=== PATIENT | male | born 1990 | race African-American/Black ===

== ENCOUNTER 2017-08-28 23:04 | Emergency (ER) | payer BC, SELFPAY ==
[2017-08-28] MEDS ORDERED: Ketorolac Tromethamine 30 MG/ML VIAL ONE (23:43)
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
== END 2017-08-29 00:35 | disposition home or self-care (01) ==
LOC: ERS 23:04
DX: S00.83XA Contusion of other part of head, initial encounter (principal); I10 Essential (primary) hypertension; J45.909 Unspecified asthma, uncomplicated; Y08.89XA Assault by other specified means, initial encounter
CPT/HCPCS: 70150; 96372; J1885

== ENCOUNTER 2019-03-02 10:32 | Emergency (ER) | payer SELFPAY ==
[2019-03-02 11:03] LABS: #Basophils 0.1 thou/uL (0.0-0.2); #Eosinphils 0.6 thou/uL (0.0-0.7); #Lymphocytes 1.2 thou/uL (1.20-3.40); #Monocytes 0.7 thou/uL (0.11-0.59); #Neutrophils 4.8 thou/uL (1.40-6.50); %Basophils 1.5 % (0.0-1.0); %Eosinophils 8.1 % (0.0-10.0); %Lymphocytes 15.9 % (21.0-51.0); %Monocytes 9.7 % (0.0-10.0); %Neutrophils 64.8 % (42.0-75.0); Hemoglobin 13.4 g/dL (14.0-18.0); Mean Corpuscular HGB CONC 32.1 g/dL (32.0-36.0); Mean Corpuscular Volume 77.9 fL (78.0-98.0); Mean Platelet Volume 6.7 fL (7.4-10.4); Platelet Count 348 thou/uL (130-400); RBC Distribution Width 12.3 % (11.5-14.5); Red Blood Cell (RBC) Count 5.34 mill/uL (4.70-6.10); White Blood Cell (WBC) Count 7.4 thou/uL (4.8-10.8)
--- NOTE | 2019-03-02 11:03 | RAD ---
F2 views of the chest: 03/02/2019 COMPARISON: 04/12/2012 HISTORY: Cough, pneumonia FINDINGS: No pneumothorax, pleural fluid, focal consolidation, or alveolar edema. Heart and mediastin al contours are unremarkable. IMPRESSION: No acute findings.
[2019-03-02 12:37] LABS: ALT (SGPT) 29 U/L (8-55); AST (SGOT) 23 U/L (5-34); Albumin 4.1 g/dL (3.5-5.0); Alkaline Phosphatase 88 U/L (40-150); Anion Gap 8 mmol/L (10-20); BUN (Urea Nitrogen) 14 mg/dL (8.9-20.6); Bilirubin, Total 1.1 mg/dL (0.2-1.2); Calc. Creatinine Clearance 0 mL/min (70-130); Calcium 9.3 mg/dL (7.8-10.44); Carbon Dioxide 28 mmol/L (22-29); Chloride 105 mmol/L (98-107); Estimated GFR-MDRD Greater than 90; Globulin 3.8 g/dL (2.4-3.5); Glucose 98 mg/dL (70-105); Potassium 3.8 mmol/L (3.5-5.1); Protein, Total 7.9 g/dL (6.0-8.3); Sodium 137 mmol/L (136-145)
== END 2019-03-02 12:51 | disposition home or self-care (01) ==
LOC: ERS 10:32
DX: R07.9 Chest pain, unspecified (principal); J45.909 Unspecified asthma, uncomplicated
CPT/HCPCS: 71046; 80053; 84484; 85025; 93005; 94760

== ENCOUNTER 2021-06-07 12:49 | Emergency (ER) | payer OTHER ==
[2021-06-07] MEDS ORDERED: Ketorolac Tromethamine 30 MG/ML VIAL ONE (14:07)
== END 2021-06-07 14:36 | disposition home or self-care (01) ==
LOC: ERS 12:49
DX: L08.9 Local infection of the skin and subcutaneous tissue, unspecified (principal); I10 Essential (primary) hypertension; J45.909 Unspecified asthma, uncomplicated
CPT/HCPCS: 96372; 99283; J1885

== ENCOUNTER 2021-08-28 14:49 | Outpatient (CLI) | payer OTHER | END 2021-08-28 14:50 | disposition home or self-care (01) | LOC: BICRAD 14:49 | PROVIDERS: ATTEND Internal Medicine | DX: Z02.71 Encounter for disability determination (principal); I51.7 Cardiomegaly | CPT/HCPCS: 71046 ==